=== PATIENT | male | born 1955 | race Hispanic/Latino ===

== ENCOUNTER → 2018-02-02 | Outpatient (CLI) | payer MEDICAID ==
[~2018-02-02] MED LIST: AMLODIPINE PO; ASPI-555 PO; ATOR40TA71 PO; BISACODYL PO; CANA300T PO; CLOP75TA32 PO; FURO20TA4 PO; LEVO50TA11 PO; LINA290C PO; LINA5TAB PO; LISI-613 PO; LORA10TA7 PO; METF-446 PO; METO-409 PO; NEXIUM PO; NITR0.4T50 SL; PRAV40TA3 PO; PREG150C PO; RANO10003 PO; SPIR25TA6 PO; SYNTHROID PO; TRAMADOL PO
== END | disposition home or self-care (01) ==
LOC: SHCH 09:25
PROVIDERS: ATTEND Internal Medicine Cardiovascular Disease
DX: I25.5 Ischemic cardiomyopathy (principal); Z95.1 Presence of aortocoronary bypass graft; E11.9 Type 2 diabetes mellitus without complications; E78.5 Hyperlipidemia, unspecified; I11.0 Hypertensive heart disease with heart failure; I50.22 Chronic systolic (congestive) heart failure; E03.9 Hypothyroidism, unspecified
CPT/HCPCS: 93306